=== PATIENT | male | born 1955 | race Caucasian/White ===

== ENCOUNTER 2019-04-01 15:06 | Emergency (ER) | payer MEDICARE ==
[~2019-04-01] VITALS: Ht 188 cm; Wt 98.4 kg
[2019-04-01] MEDS ORDERED: HAWT500C PO (15:16)
[2019-04-01] MEDS ORDERED: SPIR1CAP INH (15:16)
--- NOTE | 2019-04-01 16:18 | REP ---
Clinical: Cough and dyspnea . Comparison: None . Findings: The mediastinum and cardiac silhouette are stable and within normal limits for portable technique. Moderate right pleural effusion and associated right lower lobe atelectasis/consolidation. Impression: Moderate right pleural effusion and presumed right lower lobe atelectasis/consolidation. Electronically Signed by Ino Son MD 04/01/2019 04:09 P
[2019-04-01 16:24] LABS: BASO # 0.1 10^3/uL (0.0-0.2); BASO % 0.7 % (0.0-1.0); EOS # 0.3 10^3/uL (0.0-0.5); EOS % 3.8 % (0.0-3.0); HEMATOCRIT 38.2 % (42.0-52.0); HEMOGLOBIN 13.4 g/dl (13.5-17.5); LYMPH # 1.1 10^3/uL (1.5-5.0); LYMPH % 14.7 % (24.0-44.0); MEAN CORPUSCULAR HGB CONC 35.1 g/dl (32.0-36.5); MONO # 0.9 10^3/uL (0.0-0.8); MONO % 11.3 % (0.0-5.0); NEUTROPHILS # 5.3 10^3/uL (1.5-8.5); PLATELET COUNT, AUTOMATED 164 10^3/uL (150-450); RED BLOOD COUNT 3.44 10^6/uL (4.30-6.10); WHITE BLOOD COUNT 7.7 10^3/uL (4.0-10.0)
[2019-04-01 16:46] LABS: INR 1.72; PROTHROMBIN TIME 19.9 SECONDS (11.8-14.0)
[2019-04-01 16:47] LABS: PARTIAL THROMBOPLASTIN TIME 38.8 SECONDS (25.0-38.4)
[2019-04-01 16:57] LABS: ALT/SGPT 34 U/L (12-78); BILIRUBIN,DIRECT 4.6 MG/DL (0.0-0.2); BILIRUBIN,TOTAL 6.7 MG/DL (0.2-1.0); BLOOD UREA NITROGEN 8 MG/DL (7-18); CALCIUM LEVEL 8.2 MG/DL (8.8-10.2); CARBON DIOXIDE LEVEL 30 MEQ/L (21-32); CHLORIDE LEVEL 97 MEQ/L (98-107); CK-MB VALUE MASS 1.1 NG/ML (<3.6); CPK CREATINE PHOSPHOKINASE 38 U/L (39-308); CREATININE FOR GFR 0.73 MG/DL (0.70-1.30); GLOMERULAR FILTRATION RATE > 60.0 (>49); GLUCOSE, FASTING 157 MG/DL (70-100); MB/CK RELATIVE INDEX 2.89 (< OR =4); POTASSIUM SERUM 3.4 MEQ/L (3.5-5.1); SODIUM LEVEL 133 MEQ/L (136-145); THYROXINE (T4) 9.2 UG/DL (4.5-12.0); TROPONIN I < 0.02 NG/ML (< 0.10)
[2019-04-01 17:00] LABS: ACETAMINOPHEN LEVEL < 2.0 UG/ML (10.0-30.0); ETHYL ALCOHOL (ETHANOL) < 0.003 % (0.000-0.010); SALICYLATE LEVEL < 1.7 MG/DL (5.0-30.0)
[2019-04-01] MEDS ORDERED: ISOVUE-370 76% 100ML VIAL (Q9967) As Ordered ONE (17:18)
[2019-04-01] MEDS ORDERED: GINK60CA2 PO (17:45)
[2019-04-01] MEDS ORDERED: MAGN400C2 PO (17:45)
[2019-04-01] MEDS ORDERED: SM P99TA PO (17:45)
[2019-04-01] MEDS ORDERED: MULTIVITAMIN -ADULT INJECTION 10 ML, THIAMINE INJection 100 MG, FOLIC ACID 1 MG in NS 1... IV ONE (17:45)
[2019-04-01] MEDS ORDERED: LevoFLOXacin 750 MG TABLET PO ONE (17:45)
--- NOTE | 2019-04-01 18:28 | REPVR ---
EXAM: CT Angiography Chest With Contrast EXAM DATE/TIME: 04/01/2019 5:29 PM CLINICAL HISTORY: 64 years old, male; Cardiovascular condition or disease; Other: Pl effusion; Additional info: Barry, right pl effusion TECHNIQUE: Imaging protocol: Computed tomographic angiography of the chest with intravenous contrast. 3D rendering: MIP reconstructed images were created and reviewed. Radiation optimization: All CT scans at this facility use at least one of these dose optimization techniques: automated exposure control; mA and/or kV adjustment per patient size (includes targeted exams where dose is matched to clinical indication); or iterative reconstruction. Contrast material: ISOVUE 370; Contrast volume: 100 ml; Contrast route: IV; COMPARISON: CR PORTABLE CHEST X-RAY 04/01/2019 3:47 PM FINDINGS: Pulmonary arteries: Peripheral pulmonary artery evaluation limited by cardiac and respiratory motion artifact. Central pulmonary arteries show no intraluminal defect suggestive of clot. Aorta: No thoracic aortic aneurysm or dissection. Lungs: Pulmonary vascular/interstitial pattern does not suggest active pulmonary edema. Noncalcified 7 mm nodule, anterior left upper lobe, image 84. No other focal lung mass. No central endobronchial lesion. Pleural space: Large dependent transudate density right pleural effusion is present occupying nearly half of right hemithorax volume, with adjacent mild atelectasis. Miniscule dependent left pleural effusion. No pneumothorax. Heart: No overt cardiac enlargement or pericardial effusion. Liver: Liver appears cirrhotic with nodular contours. Spleen: Spleen is enlarged. Intraperitoneal space: Large volume abdominal free fluid. Lymph nodes: Small, nonspecific mediastinal nodes are present. Bones/joints: Bony structures show no acute fracture or destructive process. IMPRESSION: 1. No evidence of acute pulmonary embolus. 2. Large right pleural effusion and miniscule left pleural effusion, which may be pleural ascites, given the presence of large volume abdominal ascites, splenomegaly and cirrhotic changes of the liver. 3. No evidence of pulmonary edema or focal pneumonia. 4. Noncalcified 7 mm nodule anterior left upper lobe in accordance with [employer] guidelines, followup CT at 6-12 months is recommended for low risk patients and followup CT at 3-6 months for high risk patients. Electronically signed by: Antonio Johnson On 04/01/2019 18:28:30 PM
--- NOTE | 2019-04-01 18:34 | REPVR ---
EXAM: CT Abdomen and Pelvis With Contrast EXAM DATE/TIME: 04/01/2019 5:29 PM CLINICAL HISTORY: 64 years old, male; Other: Jaundice; Additional info: Jaunice, right pl effusion TECHNIQUE: Imaging protocol: Computed tomography of the abdomen and pelvis with intravenous contrast. Radiation optimization: All CT scans at this facility use at least one of these dose optimization techniques: automated exposure control; mA and/or kV adjustment per patient size (includes targeted exams where dose is matched to clinical indication); or iterative reconstruction. Contrast material: ISOVUE 370; Contrast volume: 100 ml; Contrast route: IV; COMPARISON: No relevant prior studies available. FINDINGS: Liver: Liver appears cirrhotic with nodular contours and heterogeneous enhancement. No focal lesion. Gallbladder and bile ducts: Gallbladder contains stones. Gallbladder wall may be mildly edematous, measuring 4-5 mm in thickness on ultrasound. No intrahepatic bile duct dilatation. Common bile duct is mildly prominent in caliber proximally measuring 10 mm. Distally it tapers, although there appear to be 2 stones in the distal common bile duct, each measuring 3 mm, coronal image 65 and axial image 67-70. Pancreas: Pancreas appears normal. No focal mass or peripancreatic inflammation. Spleen: Spleen is borderline enlarged measuring 13 cm. No focal lesion. Adrenals: Adrenal glands are normal in appearance. Kidneys and ureters: Kidneys are unremarkable aside from a benign simple fluid density 8 mm right renal cyst for which no followup is warranted. Stomach and bowel: No evidence of small bowel obstruction. Diverticular changes are present within the colon without inflammation. Appendix: Normal caliber appendix is identified, with no adjacent inflammation. Intraperitoneal space: Large volume abdominal and pelvic free fluid is present, transudate density. No peripheral enhancement or organization. No pneumoperitoneum. Vasculature: Atherosclerotic change present in the aorta, without aneurysm. Lymph nodes: No enlarged lymph nodes. Bladder: Bladder appears normal. Bones/joints: Degenerative changes are seen in the lumbar spine with disc height loss, endplate osteophytes and hypertrophic facet arthropathy. Soft tissues: Skin thickening and subcutaneous edema over the anterior lower abdomen IMPRESSION: 1. Large volume abdominal and pelvic ascites with underlying cirrhosis and splenomegaly. No portal or splenic vein thrombosis. 2. Cholelithiasis and mild gallbladder wall thickening which will be evaluated on ultrasound. 2 distal common bile duct stones are present at the ampulla level, each measuring 3 mm, without intrahepatic bile duct dilatation. Consider ERCP. 3. Colonic diverticulosis without active inflammation COMMENT: Consistent with the [employer]'s Incidental Findings Committee Report (J Am Jose Radiol 2010): Unless the patient's specific circumstances suggest otherwise, any liver lesion 0.5 cm or less, any cystic kidney lesion less than 1.0 cm, and/or any adrenal lesion 1.0 cm or less not otherwise characterized in this report as possessing suspicious or indeterminate imaging features is/are highly likely to be benign and do not require follow-up imaging or biopsy. Electronically signed by: Antonio Johnson On 04/01/2019 18:33:48 PM
--- NOTE | 2019-04-01 18:36 | REPVR ---
EXAM: US Abdomen Limited, Right Upper Quadrant EXAM DATE/TIME: 04/01/2019 6:04 PM CLINICAL HISTORY: 64 years old, male; Abdominal pain; Additional info: Jaundice TECHNIQUE: Imaging protocol: Real-time ultrasound of the abdomen with image documentation. Examination was focused on the right upper quadrant. COMPARISON: CT ABD/PEL W/IV CONTRAST ONLY 04/01/2019 5:30 PM FINDINGS: Pancreas is not visualized well but was evaluated on CT. Liver is enlarged, echogenic and nodular. Gallbladder contains multiple stones, with thickened wall measuring 4-5 mm. Common bile duct measures 10 mm in diameter. No intrahepatic bile duct dilatation Right kidney measures 11.8 cm in long axis. Right kidney appears normal. Large volume ascites. IMPRESSION: Cholelithiasis and gallbladder wall thickening. Common bile duct measures up to 10 mm without intrahepatic bile duct dilatation. CT demonstrated 2 small stones in the distal common bile duct, each measuring roughly 3 mm. Cirrhotic changes of the liver with large volume ascites. Electronically signed by: Antonio Johnson On 04/01/2019 18:35:43 PM
[2019-04-01 21:12] VITALS: BP 135/62
[2019-04-03 12:56] LABS: HEPATITIS B SURFACE ANTIGEN NEGATIVE (NEGATIVE)
[2019-04-03 13:23] LABS: HEPATITIS B CORE ANTIBODY IGM NEGATIVE (NEGATIVE); HEPATITIS C VIRUS ABY INDEX 0.1 INDEX (<0.8)
[2019-04-03 13:26] LABS: HEPATITIS A ANTIBODY IGM NEGATIVE (NEGATIVE)
--- NOTE | 2019-04-03 16:41 | ECGEPIP ---
[facility] - ED Test Date: 2019-04-01 Pat Name: PAUL COHEN Department: Room: - Gender: Male Chha: : 1955 Requested By: Sandra Kathleen Order Number: [id number] Reading MD: Milla Diaz Measurements Intervals [place] Rate: 102 P: 23 MO: 113 QRS: 50 QRSD: 97 T: 53 QT: 369 QTc: 481 Interpretive Statements SINUS TACHYCARDIA WITH SHORT MO INTERVAL NONSPECIFIC T-WAVE ABNORMALITY ABNORMAL RHYTHM ECG NO PRIOR Electronically Signed on 04-03-2019 16:40:48 EDT by Milla Diaz
== END 2019-04-01 21:17 | disposition short-term general hospital (02) ==
LOC: M ED 15:06
DX: J90 Pleural effusion, not elsewhere classified (principal); R17 Unspecified jaundice; R18.8 Other ascites; K80.50 Calculus of bile duct without cholangitis or cholecystitis without obstruction; F10.10 Alcohol abuse, uncomplicated; Z88.0 Allergy status to penicillin; F17.210 Nicotine dependence, cigarettes, uncomplicated
CPT/HCPCS: 36415; 71045; 71275; 74177; 76705; 80047; 80048; 80076; 82550; 82553; 83605; 84436; 84443; 84484; 85025; 85610; 85730; 86705; 86709; 86803; 87040; 87340; 93005; 93041; 94760; 96374; 99285; G0480; J3411; Q9967

== ENCOUNTER → 2019-05-23 | Outpatient (CLI) | payer MEDICARE ==
[~2019-05-23] MED LIST: CALCCHW PO; FURO40TA2 PO; GINK60CA2 PO; HAWT500C PO; MAGN400C2 PO; OYST500T13 PO; PANT40TA3 PO; PRED10TA2 PO; SM P99TA PO; SPIR100T3 PO; SPIR1CAP INH
[2019-05-23 12:28] LABS: BASO # 0.1 10^3/uL (0.0-0.2); BASO % 1.3 % (0.0-1.0); EOS # 0.2 10^3/uL (0.0-0.5); EOS % 3.5 % (0.0-3.0); HEMATOCRIT 42.6 % (42.0-52.0); HEMOGLOBIN 14.5 g/dl (13.5-17.5); LYMPH # 1.6 10^3/uL (1.5-5.0); MEAN CORPUSCULAR HEMOGLOBIN 36.3 pg (27.0-33.0); MEAN CORPUSCULAR VOLUME 106.5 fl (80.0-96.0); MONO # 0.7 10^3/uL (0.0-0.8); MONO % 11.3 % (0.0-5.0); NEUTROPHILS # 3.4 10^3/uL (1.5-8.5); NEUTROPHILS % 56.4 % (36.0-66.0); PLATELET COUNT, AUTOMATED 113 10^3/uL (150-450)
[2019-05-23 12:38] LABS: INR 1.37; PROTHROMBIN TIME 16.6 SECONDS (11.8-14.0)
[2019-05-23 12:39] LABS: PARTIAL THROMBOPLASTIN TIME 38.1 SECONDS (25.0-38.4)
[2019-05-23 12:59] LABS: ALBUMIN 2.7 GM/DL (3.2-5.2); ALT/SGPT 29 U/L (12-78); BILIRUBIN,TOTAL 3.1 MG/DL (0.2-1.0); BLOOD UREA NITROGEN 17 MG/DL (7-18); CALCIUM LEVEL 9.1 MG/DL (8.8-10.2); CARBON DIOXIDE LEVEL 23 MEQ/L (21-32); CHLORIDE LEVEL 108 MEQ/L (98-107); CREATININE FOR GFR 1.01 MG/DL (0.70-1.30); GLOMERULAR FILTRATION RATE > 60.0 (>49); GLUCOSE, FASTING 153 MG/DL (70-100); POTASSIUM SERUM 4.4 MEQ/L (3.5-5.1); SODIUM LEVEL 139 MEQ/L (136-145); TOTAL PROTEIN 6.9 GM/DL (6.4-8.2)
== END ==
LOC: M LAB 11:42
PROVIDERS: ATTEND Internal Medicine Gastroenterology
DX: K70.31 Alcoholic cirrhosis of liver with ascites (principal)

== ENCOUNTER 2019-05-28 05:56 | Inpatient (IN) | payer MEDICARE ==
[~2019-05-28] VITALS: Ht 188 cm; Wt 89.1 kg
[~2019-05-28 05:56] MED LIST changes: -CALCCHW PO; -FURO40TA2 PO; -OYST500T13 PO; -PANT40TA3 PO; -PRED10TA2 PO; -SPIR100T3 PO
[2019-05-28 06:54] LABS: BASO # 0.1 10^3/uL (0.0-0.2); BASO % 1.1 % (0.0-1.0); EOS # 0.4 10^3/uL (0.0-0.5); EOS % 5.6 % (0.0-3.0); LYMPH % 32.5 % (24.0-44.0); MEAN CORPUSCULAR HEMOGLOBIN 36.1 pg (27.0-33.0); MEAN CORPUSCULAR HGB CONC 34.1 g/dl (32.0-36.5); MEAN CORPUSCULAR VOLUME 105.7 fl (80.0-96.0); MONO # 0.8 10^3/uL (0.0-0.8); MONO % 12.9 % (0.0-5.0); NEUTROPHILS % 47.4 % (36.0-66.0); PLATELET COUNT, AUTOMATED 125 10^3/uL (150-450); RED BLOOD COUNT 3.88 10^6/uL (4.30-6.10); WHITE BLOOD COUNT 6.3 10^3/uL (4.0-10.0)
[2019-05-28 07:06] LABS: INR 1.49; PROTHROMBIN TIME 17.7 SECONDS (11.8-14.0)
[2019-05-28 07:07] LABS: PARTIAL THROMBOPLASTIN TIME 41.1 SECONDS (25.0-38.4)
[2019-05-28 07:21] LABS: ALBUMIN 2.6 GM/DL (3.2-5.2); ALT/SGPT 23 U/L (12-78); BILIRUBIN,DIRECT 1.1 MG/DL (0.0-0.2); BILIRUBIN,TOTAL 2.7 MG/DL (0.2-1.0); BLOOD UREA NITROGEN 24 MG/DL (7-18); CALCIUM LEVEL 8.9 MG/DL (8.8-10.2); CARBON DIOXIDE LEVEL 24 MEQ/L (21-32); CHLORIDE LEVEL 108 MEQ/L (98-107); CREATININE FOR GFR 1.09 MG/DL (0.70-1.30); ETHYL ALCOHOL (ETHANOL) < 0.003 % (0.000-0.010); GLOMERULAR FILTRATION RATE > 60.0 (>49); GLUCOSE, FASTING 130 MG/DL (70-100); LIPASE 246 U/L (73-393); POTASSIUM SERUM 4.5 MEQ/L (3.5-5.1); SODIUM LEVEL 141 MEQ/L (136-145); TOTAL PROTEIN 6.6 GM/DL (6.4-8.2)
[2019-05-28] MEDS ORDERED: FURO40TA2 PO (07:22)
[2019-05-28] MEDS ORDERED: PANT40TA3 PO (07:22)
[2019-05-28] MEDS ORDERED: CALCCHW PO (07:22)
[2019-05-28] MEDS ORDERED: PRED10TA2 PO (07:22)
[2019-05-28] MEDS ORDERED: SPIR100T3 PO (07:22)
[2019-05-28] MEDS ORDERED: IPRATROPIUM 0.5MG/ALBUTEROL 2.5MG INH SOL UD 3ML (DUONEB)(J7620) NEB ONE (08:15)
[2019-05-28] MEDS ORDERED: FUROSEMIDE 40 MG/4 ML VIAL (J1940) IV ONE (08:15)
--- NOTE | 2019-05-28 08:21 | REP ---
Clinical: Cough. Hemoptysis. Technique: PA and lateral. Comparison: 04/01/2019. Findings: Moderate right pleural effusion with underlying atelectasis is again noted and similar to prior examination. Remainder of the lung allison are well-aerated and relatively clear. Visualized portions of the mediastinum and cardiac silhouette are normal. Skeletal structures are intact. Impression: Moderate right pleural effusion essentially unchanged when compared to prior examination. Electronically Signed by Ino Son MD 05/28/2019 08:13 A
[2019-05-28] MEDS ORDERED: NICOTINE 21MG/24HR 1 EA TRANSDERMAL TD ONE (10:30)
[2019-05-28] MEDS ORDERED: OYST500T13 PO (10:47)
--- NOTE | 2019-05-28 11:05 | REP ---
Clinical: Abnormal chest x-ray findings. Effusion. Technique: Axial noncontrast images from the thoracic inlet to the upper abdomen with coronal and sagittal re-formations. Comparison: 04/01/2019. Findings: There is a moderate right pleural effusion along with elements of partial collapse/consolidation involving the right middle lobe and right lower lobe. There is a 10 mm noncalcified nodule in the anterior left upper lobe (image 47) along with 7 mm nodules in the periphery of the left lower lobe (images 78 - 79). Evaluation of the mediastinum is somewhat limited although nonspecific lymph nodes are identified. Atherosclerotic changes to the thoracic aorta and coronary arteries noted without aortic aneurysm or cardiomegaly. No pericardial effusion. Musculoskeletal structures appear intact without focal abnormality. Limited upper abdomen demonstrates normal bilateral adrenal glands and cholelithiasis as well as small subcapsular hepatic fluid and findings to suggest splenomegaly. Impression: 1. Moderate right pleural effusion with associated consolidation/partial collapse to the right middle lobe and right lower lobe. 2. Few left-sided nodules concerning for the possibility of metastatic disease. 3. Limited evaluation of the upper abdomen suggesting cholelithiasis as well as splenomegaly. Electronically Signed by Ino Son MD 05/28/2019 10:56 A
[2019-05-28 12:31] VITALS: BP 141/68
[2019-05-28] MEDS: PANTOPRAZOLE 40MG TAB (PROTONIX) PO SCH (13:22)
[2019-05-28] MEDS: SPIRONOLACTONE 50 MG TAB PO SCH (13:22)
--- NOTE | 2019-05-28 14:46 | REP ---
Clinical: Therapeutic paracentesis. Technique: Real time german scale ultrasound examination using curved array transducer. Findings: Generalized ultrasound examination demonstrates small amount of perihepatic fluid. Paracentesis not performed. Impression: Minimal amount of perihepatic fluid. Electronically Signed by Ino Son MD 05/28/2019 02:37 P
[2019-05-28 22:00] VITALS: BP 125/60
--- NOTE | 2019-05-28 22:39 | ECGEPIP ---
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
--- NOTE | 2019-05-28 23:02 | HPEPDOC ---
General Date of Admission 05/28/19 Date of Service: May 28, 2019 Chief Complaint The patient is a 64-year-old male admitted with a reason for visit of Vomiting Blood. Source: Patient, Family, RN/MD, Old records Exam Limitations: No limitations Severity: Moderate Associated Symptoms: Cough History of Present Illness 64 year old male with PMH of Alcoholic Cirrhosis with Ascites, splenomegaly, Right pleural effusion, Cholelithiasis, Left lung nodule presented to the ED for blood tinged sputum since last night. Pateint is a smoker and has chronic cough but from last night he has noticed streaks of blood in his sputum so came to the ED for evaluation. Pateint has not had a drink from february 2019. Pateint denied any fever or chills, denied any SOB or chest pain. Denied any vomiting or hemetemesis or christy. He did complain of tremors in his hands and complained of intermittent burning pain on the bottom of left foot. He denied any increased abdominal swelling. He did have ascitic fluid tapped in February 2019 at [facility]. CXR showed moderate right sided pleural effusion present since February 2019. CT c hest showed Moderate right pleural effusion with associated consolidation/partial collapse to the right middle lobe and right lower lobe. Few left-sided nodules concerning for the possibility of metastatic disease. Patient was admitted for Hemoptysis, evaluation of right pleural effusion. Home Medications Scheduled Calcium Carbonate/Vitamin D3 (Oyster Shell 500-Vit D3 200 Tb) 1 Each Tablet, 1 TAB PO DAILY, (Reported) Furosemide (Furosemide) 40 Mg Tablet, 40 MG PO DAILY, (Reported) Pantoprazole Sodium (Pantoprazole Sodium) 40 Mg Tablet.dr, 40 MG PO DAILY, (Reported) Spironolactone (Spironolactone) 100 Mg Tablet, 100 MG PO DAILY, (Reported) Allergies Coded Allergies: Penicillins (Verified Allergy, Unknown, 04/01/19) Past Medical History Medical History Alcoholic Cirrhosis with Ascites, splenomegaly Right pleural effusion Cholelithiasis Left lung nodule Peripheral vascular disease with stents in legs. Surgical History Tonsillectomy, Stents in both the legs. Family History FATHER: , HTN MOTHER: , BREAST CANCER SIBLINGS: ALIVE SON(S): ALIVE 1 BROTHER(S) , 2 SISTER(S) . 3 SON(S) . Social History * Smoker: current smoker Alcohol: heavy Drugs: denies A-FIB/CHADSVASC A-FIB History Current/History of A-Fib/PAF?: No Review of Systems Constitutional: Denies: Chills, Fever, Night Sweats Eyes: Denies: Pain, Vision change ENT: Denies: Head Aches, Ear Pain, Dysphagia Skin: Reports: Itching, Dry; Denies: Rash, Lesions, Breakdown Pulmonary: Reports: Cough, Other Symptoms (hemoptysis) Cardiovascular: Denies: Chest Pain, Palpitations, Orthopnea, Paroxysmal Noc. Dyspnea, Lt Headedness Gastrointestinal: Denies: Nausea, Vomiting, Abdominal Pain, Diarrhea Genitourinary: Denies: Dysuria, Frequency, Incontinence, Retention Hematologic: Denies: Bruising, Bleeding Excessively Musculoskeletal: Reports: Back Pain; Denies: Neck Pain, Joint Pain, Muscle Pain, Spasms Neurological: Reports: Other Symptoms (tremors of both hands); Denies: Weakness, Numbness, Change in speech, Confusion Physical Examination General Exam: Positive: Alert, Cooperative, No Acute Distress Eye Exam: Positive: PERRLA, Conjunctiva & lids normal, EOMI; Negative: Sclera icteric ENT Exam: Positive: Atraumatic, Mucous membr. moist/pink, Pharynx Normal Neck Exam: Positive: Supple; Negative: JVD, thyromegaly Chest Exam: Positive: Clear to auscultation, Diminished (at the right base) Heart Exam: Positive: Rate Normal, Regular Rhythm, Normal S1, Normal S2; Negative: Murmurs, Rubs Telemetry: Positive: No significant arrhythmia Abdomen Exam: Positive: Normal bowel sounds, Soft, Other (ascites); Negative: Tenderness, Hepatospenomegaly Extremity Exam: Positive: Edema (trace), Normal pulses; Negative: Clubbing, Cyanosis Skin Exam: Positive: Pruritus, Other skin issue (dry) Neuro Exam: Positive: Normal Speech, Normal Tone Vital Signs Vital Signs Date Time Temp Pulse Resp B/P (MAP) Pulse Ox O2 Delivery O2 Flow Rate FiO2 05/28/19 08:58 94 18 137/65 (89) 94 05/28/19 05:58 97.3 Room Air Laboratory Data Labs 24H Laboratory Tests 2 05/28/19 06:35: Immature Granulocyte % (Auto) 0.5, Neutrophils (%) (Auto) 47.4, Lymphocytes (%) (Auto) 32.5, Monocytes (%) (Auto) 12.9H, Eosinophils (%) (Auto) 5.6H, Basophils (%) (Auto) 1.1H, Neutrophils # (Auto) 3.0, Lymphocytes # (Auto) 2.0, Monocytes # (Auto) 0.8, Eosinophils # (Auto) 0.4, Basophils # (Auto) 0.1, Nucleated Red Blood Cells % (auto) 0.0, Prothrombin Time 17.7H, Prothromb Time International Ratio 1.49, Activated Partial Thromboplast Time 41.1H, Anion Gap 9, Glomerular Filtration Rate > 60.0, Calcium Level 8.9, Total Bilirubin 2.7H, Direct Bilirubin 1.1H, Aspartate Amino Transf (AST/SGOT) 33, Alanine Aminotransferase (ALT/SGPT) 23, Alkaline Phosphatase 106, Ammonia 107H, Total Protein 6.6, Albumin 2.6L, Albumin/Globulin Ratio 0.65L, Lipase 246, Ethyl Alcohol Level < 0. 003 CBC/BMP Laboratory Tests 05/28/19 06:35 Assessment/Plan 64 year old male with PMH of Alcoholic Cirrhosis with Ascites, splenomegaly, Right pleural effusion, Cholelithiasis, Left lung nodule presented to the ED for blood tinged sputum since last night. Pateint is a smoker and has chronic cough but from last night he has noticed streaks of blood in his sputum so came to the ED for evaluation. Pateint has not had a drink from february 2019. Pateint denied any fever or chills, denied any SOB or chest pain. Denied any vomiting or hemetemesis or christy. He did complain of tremors in his hands and complained of intermittent burning pain on the bottom of left foot. He denied any increased abdominal swelling. He did have ascitic fluid tapped in February 2019 at [facility]. CXR showed moderate right sided pleural effusion present since February 2019. CT chest showed Moderate right pleural effusion with associated consolidation/partial collapse to the right middle lobe and right lower lobe. Few left-sided nodules concerning for the possibility of metastatic disease. Patient was admitted for Hemoptysis, evaluation of right pleural effusion. Hemoptysis will send sputum for gram statin and cytology consider getting AFB also as the pateint is immunocompromised Right sided pleural efussion probably related to ascites but need to rule out other causes will schedule for thoracocentesis tomorrow Alcoholic cirrhosis continue lasix and spironolactone Ascites minimal GERD continue PPI. Plan / VTE VTE Prophylaxis Ordered?: Yes MELISSA ALFARO MD May 28, 2019 10:31
[2019-05-29 06:00] VITALS: BP 128/72
[2019-05-29 06:13] LABS: BASO # 0.1 10^3/uL (0.0-0.2); BASO % 1.4 % (0.0-1.0); EOS # 0.3 10^3/uL (0.0-0.5); EOS % 5.2 % (0.0-3.0); HEMATOCRIT 36.7 % (42.0-52.0); HEMOGLOBIN 12.3 g/dl (13.5-17.5); LYMPH # 1.6 10^3/uL (1.5-5.0); LYMPH % 31.1 % (24.0-44.0); MEAN CORPUSCULAR HEMOGLOBIN 35.3 pg (27.0-33.0); MEAN CORPUSCULAR HGB CONC 33.5 g/dl (32.0-36.5); MEAN CORPUSCULAR VOLUME 105.5 fl (80.0-96.0); MONO # 0.7 10^3/uL (0.0-0.8); MONO % 14.7 % (0.0-5.0); NEUTROPHILS # 2.4 10^3/uL (1.5-8.5); NEUTROPHILS % 47.4 % (36.0-66.0); PLATELET COUNT, AUTOMATED 102 10^3/uL (150-450); RED BLOOD COUNT 3.48 10^6/uL (4.30-6.10)
[2019-05-29 06:33] LABS: BLOOD UREA NITROGEN 24 MG/DL (7-18); CALCIUM LEVEL 8.3 MG/DL (8.8-10.2); CARBON DIOXIDE LEVEL 26 MEQ/L (21-32); CHLORIDE LEVEL 105 MEQ/L (98-107); CREATININE FOR GFR 1.01 MG/DL (0.70-1.30); GLOMERULAR FILTRATION RATE > 60.0 (>49); GLUCOSE, FASTING 140 MG/DL (70-100); POTASSIUM SERUM 4.4 MEQ/L (3.5-5.1); SODIUM LEVEL 138 MEQ/L (136-145)
[2019-05-29] MEDS ORDERED: ENOXAPARIN 40 MG/0.4 ML SYRINGE (J1650) SC SCH (09:00)
[2019-05-29] MEDS: SPIRONOLACTONE 50 MG TAB PO SCH (09:48)
[2019-05-29] MEDS: FUROSEMIDE 40 MG TAB PO SCH (09:48)
[2019-05-29] MEDS: PANTOPRAZOLE 40MG TAB (PROTONIX) PO SCH (09:48)
[2019-05-29] MEDS: NICOTINE 21MG/24HR 1 EA TRANSDERMAL TD SCH (09:49)
--- NOTE | 2019-05-29 13:16 | IPNPDOC ---
Date Seen The patient was seen on 05/29/19. Progress Note SUBJECTIVE: 64-year-old male with past medical history of alcohol abuse, cirrhosis, was admitted for moderate to large sized right pleural effusion and hemoptysis. Patient reports that he's been having scant amount of blood-tinged sputum for the past 1 day, no episodes today, CT was concerning for multiple nodules in the left lung which patient reports that he has heard about in the past but have never had any biopsy or further workup. He is an active smoker who currently smokes 3 packs per day and has been for over 30 years. He is scheduled for thoracentesis by IR, concern is high for malignancy, possibly hepatopulmonary syndrome. He denies any shortness of breath, chest pain, vomiting, abdominal pain or diarrhea at this time. He is having dry cough, no blood-tinged sputum today. 10 point review of systems negative except for above PHYSICAL EXAMINATION: VITAL SIGNS: Please see below. GENERAL: No distress, poor hygiene HEENT: Normocephalic, atraumatic, moist mucous membranes NECK: Supple CARDIOVASCULAR EXAMINATION: S1, S2, no murmurs RESPIRATORY EXAMINATION: Significantly Diminished on the left side, absent on the right side ABDOMINAL EXAMINATION: Soft, nontender, nondistended, positive bowel sounds EXTREMITIES: Range of motion intact SKIN: No rash NEUROLOGICAL EXAMINATION: Alert and oriented 3, no focal deficits PSYCHIATRIC EXAMINATION: Calm and cooperative LABORATORY DATA, IMAGING STUDIES, MICROBIOLOGY: Please see below. DVT prophylaxis ordered?: No ASSESSMENT AND PLAN: 64-year-old male with history of cirrhosis and active smoker with lung nodules on imaging is admitted for hemoptysis and moderate to large right-sided pleural effusion. PROBLEMS: 1. Right pleural effusion: Concern for about a pulmonate syndrome, high risk for malignancy given smoking history and lung nodules. Scheduled for thoracentesis by IR today, pleural studies ordered, saturating well on room air, no respiratory distress. 2. Lung nodules:. Patient aware of lung nodules for at least 2 years, denies history of biopsy, reports no extensive workup as per outpatient physician.. 3. Cirrhosis: Secondary to alcohol use, liver function tests within acceptable range, INR 1.5 and platelets greater than 100,000, continue spironolactone and Lasix.. DVT prophylaxis: SCDs, chemical prophylaxis contraindicated due to hemoptysis. GI prophylaxis: Protonix VS, I&O, 24H, Fishbone Vital Signs/I&O Vital Signs Date Time Temp Pulse Resp B/P (MAP) Pulse Ox O2 Delivery O2 Flow Rate FiO2 05/29/19 06:00 97.7 88 18 128/72 (90) 96 Room Air I&O- Last 24 Hours up to 6 AM 05/29/19 05:59 Intake Total 600 ml Balance 600 ml Laboratory Data 24H LABS Laboratory Tests 2 05/29/19 05:49: Immature Granulocyte % (Auto) 0.2, Neutrophils (%) (Auto) 47.4, Lymphocytes (%) (Auto) 31.1, Monocytes (%) (Auto) 14.7H, Eosinophils (%) (Auto) 5.2H, Basophils (%) (Auto) 1.4H, Neutrophils # (Auto) 2.4, Lymphocytes # (Auto) 1.6, Monocytes # (Auto) 0.7, Eosinophils # (Auto) 0.3, Basophils # (Auto) 0.1, Nucleated Red Blood Cells % (auto) 0.0, Anion Gap 7L, Glomerular Filtration Rate > 60.0, Calcium Level 8.3L CBC/BMP Laboratory Tests 05/29/19 05:49 IESHA MCGHEE MD May 29, 2019 13:15
[2019-05-29 14:00] VITALS: BP 124/63
--- NOTE | 2019-05-29 17:05 | REP ---
CHEST, TWO VIEWS: Two views of the chest are performed, status post right thoracentesis. There is no pneumothorax. There is significant decrease in the right pleural effusion. A small residual is noted. Minor interstitial infiltrate is seen in the right base. Left lung is unchanged. Heart and mediastinum are unremarkable. There are degenerative changes of the spine. IMPRESSION: No pneumothorax. Status post right thoracentesis with significantly decreased right pleural fluid. Electronically Signed by Lev Espino MD 05/30/2019 02:38 P
[2019-05-29 17:06] LABS: PH BODY FLUID 7.522 UNITS (NOT ESTABLISHED); SOURCE, BODY FLUID pH PLEURAL
[2019-05-29 17:30] VITALS: BP 127/62
[2019-05-29 17:44] LABS: APPEARANCE, BODY FLUID HAZY (CLEAR); PLEURAL FL COLOR YELLOW (COLORLESS); SOURCE, BODY FLUID PLEURAL
[2019-05-29 17:50] LABS: AMYLASE, BODY FLUID 34 U/L (NOT ESTABLISHED); CHOLESTEROL, BODY FLUID < 50 MG/DL (NOT ESTABLISHED); LDH, BODY FLUID 140 U/L (NOT ESTABLISHED); SOURCE, BODY FLUID ALBUMIN PLEURAL; SOURCE, BODY FLUID AMYLASE PLEURAL; SOURCE, BODY FLUID CHOL PLEURAL; SOURCE, BODY FLUID GLUCOSE PLEURAL; SOURCE, BODY FLUID LDH PLEURAL; SOURCE, BODY FLUID TOT PROTEIN PLEURAL; SOURCE, BODY FLUID TRIG PLEURAL; TRIGLYCERIDE, BODY FLUID 29 MG/DL (NOT ESTABLISHED)
[2019-05-29 18:00] VITALS: BP 121/63
[2019-05-29 22:00] VITALS: BP 123/60
[2019-05-30 06:00] VITALS: BP 137/79
[2019-05-30 07:34] LABS: BASO # 0.1 10^3/uL (0.0-0.2); BASO % 1.2 % (0.0-1.0); EOS # 0.3 10^3/uL (0.0-0.5); HEMATOCRIT 39.1 % (42.0-52.0); HEMOGLOBIN 13.2 g/dl (13.5-17.5); LYMPH # 1.6 10^3/uL (1.5-5.0); LYMPH % 23.7 % (24.0-44.0); MEAN CORPUSCULAR HEMOGLOBIN 35.4 pg (27.0-33.0); MEAN CORPUSCULAR HGB CONC 33.8 g/dl (32.0-36.5); MEAN CORPUSCULAR VOLUME 104.8 fl (80.0-96.0); MONO # 0.9 10^3/uL (0.0-0.8); MONO % 12.4 % (0.0-5.0); NEUTROPHILS # 3.9 10^3/uL (1.5-8.5); NEUTROPHILS % 57.3 % (36.0-66.0); PLATELET COUNT, AUTOMATED 112 10^3/uL (150-450); RED BLOOD COUNT 3.73 10^6/uL (4.30-6.10); WHITE BLOOD COUNT 6.8 10^3/uL (4.0-10.0)
[2019-05-30 07:56] LABS: BLOOD UREA NITROGEN 21 MG/DL (7-18); CALCIUM LEVEL 9.1 MG/DL (8.8-10.2); CARBON DIOXIDE LEVEL 26 MEQ/L (21-32); CHLORIDE LEVEL 106 MEQ/L (98-107); CREATININE FOR GFR 0.84 MG/DL (0.70-1.30); GLOMERULAR FILTRATION RATE > 60.0 (>49); GLUCOSE, FASTING 123 MG/DL (70-100); MAGNESIUM LEVEL 1.6 MG/DL (1.8-2.4); POTASSIUM SERUM 4.2 MEQ/L (3.5-5.1); SODIUM LEVEL 138 MEQ/L (136-145)
[2019-05-30] MEDS: PANTOPRAZOLE 40MG TAB (PROTONIX) PO SCH (07:58)
[2019-05-30] MEDS: SPIRONOLACTONE 50 MG TAB PO SCH (07:58)
[2019-05-30] MEDS: FUROSEMIDE 40 MG TAB PO SCH (07:58)
[2019-05-30] MEDS: NICOTINE 21MG/24HR 1 EA TRANSDERMAL TD SCH (08:00)
--- NOTE | 2019-05-30 13:34 | IPNPDOC ---
Date Seen The patient was seen on 05/30/19. Progress Note SUBJECTIVE: 64-year-old male with past medical history of alcohol abuse, cirrhosis, was admitted for moderate to large sized right pleural effusion and hemoptysis. Patient reports that he's been having scant amount of blood-tinged sputum for the past 1 day, no episodes today, CT was concerning for multiple nodules in the left lung which patient reports that he has heard about in the past but have never had any biopsy or further workup. He is an active smoker who currently smokes 3 packs per day and has been for over 30 years. He is scheduled for thoracentesis by IR, concern is high for malignancy, possibly hepatopulmonary syndrome. He denies any shortness of breath, chest pain, vomiting, abdominal pain or diarrhea at this time. He is having dry cough, no blood-tinged sputum today. 05/30/2019 Patient resting in bed without any complaints, reports significant improvement in shortness of breath after having thoracentesis yesterday. He continues to have dry cough, no other complaints at this time. He denies any chest pain, vomiting, abdominal pain or diarrhea. No further episodes of hemoptysis. 10 point review of systems negative except for above PHYSICAL EXAMINATION: VITAL SIGNS: Please see below. GENERAL: No distress, poor hygiene HEENT: Normocephalic, atraumatic, moist mucous membranes NECK: Supple CARDIOVASCULAR EXAMINATION: S1, S2, no murmurs RESPIRATORY EXAMINATION: Improved bilaterally, continues to have poor air movement. ABDOMINAL EXAMINATION: Soft, nontender, nondistended, positive bowel sounds EXTREMITIES: Range of motion intact SKIN: No rash NEUROLOGICAL EXAMINATION: Alert and oriented 3, no focal deficits PSYCHIATRIC EXAMINATION: Calm and cooperative LABORATORY DATA, IMAGING STUDIES, MICROBIOLOGY: Please see below. DVT prophylaxis ordered?: Yes ASSESSMENT AND PLAN: 64-year-old male with history of cirrhosis and active smoker with lung nodules on imaging is admitted for hemoptysis and moderate to large right-sided pleural effusion. PROBLEMS: 1. Right pleural effusion: Status post thoracentesis yesterday, exudative effusion, cytology concerning for malignancy, will discuss with oncology regarding further management. 2. Lung nodules: Patient aware of lung nodules for at least 2 years, denies history of biopsy, based on pleural effusion cytology, may have primary malignancy in the right lung with left lung metastases. 3. Cirrhosis: Secondary to alcohol use, liver function tests within acceptable range, INR 1.5 and platelets greater than 100,000, continue spironolactone and Lasix. DVT prophylaxis: Heparin subcutaneous GI prophylaxis: Protonix VS, I&O, 24H, Fishbone Vital Signs/I&O Vital Signs Date Time Temp Pulse Resp B/P (MAP) Pulse Ox O2 Delivery O2 Flow Rate FiO2 05/30/19 06:00 99.0 99 15 137/79 (98) 94 Room Air I&O- Last 24 Hours up to 6 AM 05/30/19 06:00 Intake Total 1620 ml Balance 1620 ml Laboratory Data 24H LABS Laboratory Tests 2 05/29/19 16:12: Body Fluid pH 7.522, Body Fluid pH Source PLEURAL, Body Fluid WBC (Auto) 1003H, Body Fluid RBC (Auto) 4, Body Fluid Mononuclear Cells % Auto 96.5H, Fluid Polymorphonuclear Cell % Auto 3.5H, Body Fluid Glucose Source PLEURAL, Body Fluid Glucose 125, Body Fluid Protein Source PLEURAL, Body Fluid Total Protein 3.0, Body Fluid Albumin Source PLEURAL, Body Fluid Albumin 1.4, Body Fluid LDH Source PLEURAL, Body Fluid Lactate Dehydrogenase 140, Body Fluid Amylase Source PLEURAL, Body Fluid Amylase 34, Body Fluid Cholesterol < 50, Body Fluid Cholesterol Source PLEURAL, Body Fluid Triglyceride Source PLEURAL, Body Fluid Triglycerides 29, Pleural Fluid Source PLEURAL, Pleural Fluid Color YELLOW, Pleural Fluid Appearance HAZY 05/30/19 07:00: Immature Granulocyte % (Auto) 0.4, Neutrophils (%) (Auto) 57.3, Lymphocytes (%) (Auto) 23.7L, Monocytes (%) (Auto) 12.4H, Eosinophils (%) (Auto) 5.0H, Basophils (%) (Auto) 1.2H, Neutrophils # (Auto) 3.9, Lymphocytes # (Auto) 1.6, Monocytes # (Auto) 0.9H, Eosinophils # (Auto) 0.3, Basophils # (Auto) 0.1, Nucleated Red Blood Cells % (auto) 0.0, Anion Gap 6L, Glomerular Filtration Rate > 60.0, Calcium Level 9.1, Magnesium Level 1.6L CBC/BMP Laboratory Tests 05/30/19 07:00 Microbiology Microbiology 05/29/19 Acid Fast Stain, Received Pending 05/29/19 Mycobacterial Culture, Received Pending 05/29/19 Fungal Smear, Received Pending 05/29/19 Fungal Culture, Received Pending 05/29/19 Gram Stain - Final, Resulted 05/29/19 Anaerobic Culture, Resulted Pending 05/29/19 Body Fluid Culture, Received Pending 05/28/19 Gram Stain - Final, Resulted 05/28/19 Sputum Culture, Resulted Pending IESHA MCGHEE MD May 30, 2019 13:34
[2019-05-30 14:00] VITALS: BP 141/87
[2019-05-30] MEDS: HEPARIN SOD (PORCINE) 5000 UNITS/ML VIAL SQ SCH ×4 (14:00→21:04)
--- NOTE | 2019-05-30 14:43 | REP ---
ULTRASOUND-GUIDED RIGHT THORACENTESIS The procedure was performed under the direct supervision of Dr. Espino. The risks and benefits of the procedure were explained to the patient and informed consent was obtained. The right pleural effusion was localized using ultrasound guidance. The skin was prepped and draped in a sterile fashion. 1% lidocaine was used as a local anesthetic. An 8-Bengali multi side-hole catheter was inserted using trocar technique. 2190 ml of ishaan colored fluid was withdrawn with a sample sent to the lab for analysis. The patient tolerated the procedure well and there were no immediate complications. After the appropriate amount of monitored convalescence the patient was discharged from the department. Electronically Signed by OK Mishra 05/29/2019 05:03 P Electronically Signed by Lev Espino MD 05/30/2019 02:34 P
[2019-05-30 22:00] VITALS: BP 149/83
[2019-05-31] MEDS: HEPARIN SOD (PORCINE) 5000 UNITS/ML VIAL SQ SCH ×2 (05:40→12:24)
[2019-05-31 06:00] VITALS: BP 151/73
[2019-05-31 06:06] LABS: BASO # 0.1 10^3/uL (0.0-0.2); BASO % 1.4 % (0.0-1.0); EOS # 0.5 10^3/uL (0.0-0.5); EOS % 7.1 % (0.0-3.0); HEMATOCRIT 39.7 % (42.0-52.0); HEMOGLOBIN 13.5 g/dl (13.5-17.5); LYMPH # 2.2 10^3/uL (1.5-5.0); LYMPH % 31.4 % (24.0-44.0); MEAN CORPUSCULAR HEMOGLOBIN 35.4 pg (27.0-33.0); MEAN CORPUSCULAR VOLUME 104.2 fl (80.0-96.0); MONO % 14.7 % (0.0-5.0); NEUTROPHILS # 3.2 10^3/uL (1.5-8.5); NEUTROPHILS % 44.8 % (36.0-66.0); PLATELET COUNT, AUTOMATED 127 10^3/uL (150-450); RED BLOOD COUNT 3.81 10^6/uL (4.30-6.10); WHITE BLOOD COUNT 7.1 10^3/uL (4.0-10.0)
[2019-05-31 06:34] LABS: BLOOD UREA NITROGEN 17 MG/DL (7-18); CALCIUM LEVEL 8.6 MG/DL (8.8-10.2); CARBON DIOXIDE LEVEL 25 MEQ/L (21-32); CHLORIDE LEVEL 103 MEQ/L (98-107); CREATININE FOR GFR 0.88 MG/DL (0.70-1.30); GLOMERULAR FILTRATION RATE > 60.0 (>49); GLUCOSE, FASTING 121 MG/DL (70-100); MAGNESIUM LEVEL 1.4 MG/DL (1.8-2.4); PHOSPHORUS LEVEL 2.7 MG/DL (2.5-4.9); POTASSIUM SERUM 3.8 MEQ/L (3.5-5.1); SODIUM LEVEL 136 MEQ/L (136-145)
[2019-05-31] MEDS ORDERED: POTASSIUM CHLORIDE 10 MEQ SR TABLET PO ONE (08:30)
[2019-05-31] MEDS: PANTOPRAZOLE 40MG TAB (PROTONIX) PO SCH (09:10)
[2019-05-31] MEDS: NICOTINE 21MG/24HR 1 EA TRANSDERMAL TD SCH (09:10)
[2019-05-31] MEDS: MAG SULF 1GM/100ML (MAG RUN) 1 GM in IV 1 EA IV SCH ×5 (09:10→15:09)
[2019-05-31] MEDS: SPIRONOLACTONE 50 MG TAB PO SCH (09:10)
[2019-05-31] MEDS: FUROSEMIDE 40 MG TAB PO SCH (09:10)
[2019-05-31] MEDS: GASTROGRAFIN SOLUTION 30ML PO SCH ×2 (09:46→10:16)
[2019-05-31] MEDS ORDERED: ISOVUE-370 76% 100ML VIAL (Q9967) As Ordered ONE (11:16)
--- NOTE | 2019-05-31 12:39 | REP ---
CT chest with IV contrast: History: Assess for malignant lesion. Comparison chest CT May 28, 2019. There is a comparison chest CT from April 01, [address] contrast dose: 100 ml of intravenous Isovue [address] findings: There is a small to moderate-sized right pleural effusion again noted, decreased in size from the May 28, 2019 prior study. There is some visceral pleural thickening adjacent to the fluid in the right lower lobe posteriorly. No definite parietal pleural thickening or nodularity is appreciated. Multiple subcentimeter nodules are again noted in the left lower lobe and left upper lobe. The largest of these is in the left upper lobe measuring 9 mm in greatest diameter. These are unchanged from the May 28, 2019 study. They do not appear to be changed from April 01, 2019. There is a calcified granuloma in the right lower lobe. There is somewhat better inflation of the right lung. There is some interstitial changes in the right lower lobe and right middle lobe at the right lung base. There is minimal ascites adjacent to the liver in the upper abdomen. Calcific density material is seen in the gallbladder lumen consistent with cholelithiasis. No adrenal lesion is seen. No hilar adenopathy is observed. There are scattered subcarinal and pre tracheal lymph nodes which do not appear to be pathologically enlarged and which are unchanged from the recent prior CT studies. No axillary or other extrathoracic adenopathy is seen. No vascular abnormalities observed. No bony destructive lesion is appreciated. Impression: There are three noncalcified pulmonary nodules in the left lung. Interstitial and visceral pleural changes are noted in the right lower lobe and to a lesser extent right middle lobe. There is there is a decreased amount of left pleural fluid and less ascites than on prior studies. Electronically Signed by Marvin Chamorro MD 05/31/2019 12:58 P
--- NOTE | 2019-05-31 12:42 | REP ---
CT abdomen and pelvis with IV and oral contrast: History: Assess for malignant lesion. Comparison CT study is from April 01, 2019. CT contrast dose: 100 ml of intravenous Isovue [address] findings: Right pleural effusion is again noted. Spleen is mildly enlarged measuring 13.2 cm in greatest transverse dimension. The liver is not overall enlarged. No focal hepatic or splenic lesion is appreciated. No adrenal lesion is observed. There is a small cyst in the upper pole of the right kidney. No other renal lesion is seen. Calcific material is seen within the lumen of the gallbladder. There is some gallbladder wall thickening. Findings are consistent with cholelithiasis and chronic cholecystitis. There is minimal ascites in the upper abdomen and pelvis. This is much decreased when compared with April 01, [address] study. There are prominent venous collaterals within the abdomen suggestive of portal hypertension. Portal vein is not dilated. There is left colonic diverticulosis without CT evidence of diverticulitis. An uninflamed appendix is seen in the right lower quadrant. Urinary bladder, prostate, and seminal vesicles are unremarkable. There is a vascular stent in the left external iliac artery. There is no visible peritoneal or abdominal mass lesion. Bone window settings show no bony destructive lesion. No abdominal wall defect is seen. Impression: Minimal ascites, much improved. Mild splenomegaly. Prominent venous collaterals noted within the abdomen. Question portal hypertension. Cholelithiasis. Left colonic diverticulosis. Electronically Signed by Marvin Chamorro MD 05/31/2019 12:58 P
--- NOTE | 2019-05-31 13:27 | DS.PDOC ---
Discharge Summary General Date of Admission May 28, 2019 at 11:23 Date of Discharge 05/31/2019 Attending Physician: IESHA MCGHEE MD Discharge Summary PROCEDURES PERFORMED DURING STAY: None. ADMITTING DIAGNOSES: 1. Pleural effusion, hemoptysis. DISCHARGE DIAGNOSES: 1. Pleural effusion, possible malignancy. COMPLICATIONS/CHIEF COMPLAINT: Alcoholic Cirrhosis Liver With Ascites ,Hemoptysis,. HISTORY OF PRESENT ILLNESS: 64-year-old active smoker with history of cirrhosis was admitted for hemoptysis in moderate to large right-sided pleural effusion. He underwent recent by IR, pleural fluid was exudative and cytology is concerning for possible neoplastic mesothelial infiltration. Case was discussed with Dr. Fonseca from hematology/oncology who recommended a CT chest, abdomen and pelvis with IV contrast and patient follow-up in her office after discharge. Patient is seen without any stable, CT performed, will be discharged with close follow-up with Dr. Fonseca and his primary. Patient did not have any episodes of hemoptysis after admission, currently without any complaints.. HOSPITAL COURSE: As above. DISCHARGE MEDICATIONS: Please see below. ALLERGIES: Please see below. PHYSICAL EXAMINATION: VITAL SIGNS: Please see below. GENERAL: No distress HEENT: Normocephalic, atraumatic, moist mucous membranes NECK: Supple CARDIOVASCULAR EXAMINATION: S1, S2, no murmurs RESPIRATORY EXAMINATION: Diminished, poor air movement, scattered rhonchi, no wheezing appreciated. ABDOMINAL EXAMINATION: Soft, nontender, nondistended, positive bowel sounds EXTREMITIES: Range of motion intact SKIN: No rash NEUROLOGICAL EXAMINATION: Alert and oriented 3, no focal deficits PSYCHIATRIC EXAMINATION: Calm and cooperative LABORATORY DATA: Please see below. IMAGING: CT chest with multiple left lung nodules concerning for metastatic disease PROGNOSIS: Poor ACTIVITY: As tolerated. DIET: Cardiac DISCHARGE PLAN: She will follow up with oncology and PCP in 1-2 weeks DISPOSITION: . DISCHARGE INSTRUCTIONS: 1. As above. DISCHARGE CONDITION: Stable. TIME SPENT ON DISCHARGE: Greater than 35 minutes. Vital Signs/I&Os Vital Signs Date Time Temp Pulse Resp B/P (MAP) Pulse Ox O2 Delivery O2 Flow Rate FiO2 05/31/19 06:00 98.6 89 16 151/73 (99) 95 05/30/19 22:00 Room Air I&O- Last 24 Hours up to 6 AM 05/31/19 06:00 Intake Total 1475 ml Output Total 0 ml Balance 1475 ml Laboratory Data Labs 24H Laboratory Tests 2 05/31/19 05:47: Immature Granulocyte % (Auto) 0.6, Neutrophils (%) (Auto) 44.8, Lymphocytes (%) (Auto) 31.4, Monocytes (%) (Auto) 14.7H, Eosinophils (%) (Auto) 7.1H, Basophils (%) (Auto) 1.4H, Neutrophils # (Auto) 3.2, Lymphocytes # (Auto) 2.2, Monocytes # (Auto) 1.0H, Eosinophils # (Auto) 0.5, Basophils # (Auto) 0.1, Nucleated Red Blood Cells % (auto) 0.0, Anion Gap 8, Glomerular Filtration Rate > 60.0, Calcium Level 8.6L, Phosphorus Level 2.7, Magnesium Level 1.4L CBC/BMP Laboratory Tests 05/31/19 05:47 Microbiology Microbiology 05/29/19 Acid Fast Stain, Received Pending 05/29/19 Mycobacterial Culture, Received Pending 05/29/19 Fungal Smear, Received Pending 05/29/19 Fungal Culture, Received Pending 05/29/19 Gram Stain - Final, Complete 05/29/19 Anaerobic Culture - Final, Complete 05/29/19 Body Fluid Culture - Final, Complete 05/28/19 Gram Stain - Final, Complete 05/28/19 Sputum Culture - Final, Complete Discharge Medications Scheduled Calcium Carbonate/Vitamin D3 (Oyster Shell 500-Vit D3 200 Tb) 1 Each Tablet, 1 TAB PO DAILY, (Reported) Furosemide (Furosemide) 40 Mg Tablet, 40 MG PO DAILY, (Reported) Pantoprazole Sodium (Pantoprazole Sodium) 40 Mg Tablet.dr, 40 MG PO DAILY, (Reported) Spironolactone (Spironolactone) 100 Mg Tablet, 100 MG PO DAILY, (Reported) Allergies Coded Allergies: Penicillins (Verified Allergy, Unknown, 04/01/19) IESHA MCGHEE MD May 31, 2019 13:27
[2019-05-31 14:00] VITALS: BP 148/65
== END 2019-05-31 16:26 | disposition home health service (06) | DRG 187 ==
LOC: M ED 05:56 → M ED INP 11:23 → M MSPAV 12:25
PROVIDERS: ADMIT Internal Medicine Nephrology; ATTEND Internal Medicine
PROC: 0W993ZX Drainage of Right Pleural Cavity, Percutaneous Approach, Diagnostic (ICD-10-PCS; principal; 2019-05-29 15:45)
DX: J90 Pleural effusion, not elsewhere classified (principal); C34.91 Malignant neoplasm of unspecified part of right bronchus or lung; R04.2 Hemoptysis; C78.02 Secondary malignant neoplasm of left lung; K70.31 Alcoholic cirrhosis of liver with ascites; Z79.899 Other long term (current) drug therapy; K80.20 Calculus of gallbladder without cholecystitis without obstruction; Z88.0 Allergy status to penicillin; I73.9 Peripheral vascular disease, unspecified; K21.9 Gastro-esophageal reflux disease without esophagitis; F17.200 Nicotine dependence, unspecified, uncomplicated

== ENCOUNTER → 2019-06-11 | Outpatient (REF) | payer MEDICARE ==
[~2019-06-11] MED LIST changes: +CALCCHW PO; +FURO40TA2 PO; +MAGN1CAP PO; +OYST500T13 PO; +PANT40TA3 PO; +PRED10TA2 PO; +SPIR100T3 PO
[2019-06-11 14:37] LABS: HEMOGLOBIN A1c 6.1 %
[2019-06-11 14:56] LABS: CHOLESTEROL RISK RATIO 3.224 (<5); FREE T4 1.21 NG/DL (0.76-1.46); THYROID STIMULATING HORMONE 2.56 uIU/ML (0.358-3.740)
== END ==
LOC: M SHH 13:08
PROVIDERS: ATTEND Student in an Organized Health Care Education/Training Program
DX: Z13.1 Encounter for screening for diabetes mellitus (principal); Z13.220 Encounter for screening for lipoid disorders; E03.9 Hypothyroidism, unspecified; Z79.899 Other long term (current) drug therapy

== ENCOUNTER 2019-07-01 09:31 | Day surgery (SDC) | payer MEDICARE ==
[~2019-07-01] VITALS: Ht 188 cm; Wt 92.5 kg
[~2019-07-01 09:31] MED LIST changes: +LIDOCAINE 2% INJ 100 MG/5 ML SDV (FOR ANES.) As Ordered ONE; +NS 1,000 ML IV ONE; +PROPOFOL 200 MG/20 ML VIAL As Ordered ONE
--- NOTE | 2019-07-01 10:50 | ROOR ---
Patient Name: Irvin Munoz Procedure Date: 07/01/2019 10:36 AM Date of : 1955 Age: 64 Room: [facility] Gender: Male Note Status: Finalized Procedure: Upper Endoscopy + Biopsies Indications: Cirrhosis rule out esophageal varices, Exclusion of gastric varices Providers: Yoan Luther MD Referring MD: Emir Schultz Do Requesting Provider: Medicines: Monitored Anesthesia Care Complications: No immediate complications. Procedure: Pre-Anesthesia Assessment: - The heart rate, respiratory rate, oxygen saturations, blood pressure, adequacy of pulmonary ventilation, and response to care were monitored throughout the procedure. The Endoscope was introduced through the mouth, and advanced to the second part of duodenum. The upper GI endoscopy was accomplished without difficulty. The patient tolerated the procedure well. Findings: The Z-line was regular and was found 40 cm from the incisors. Grade I varices were found in the lower third of the esophagus. They were diminutive in size. Mild portal hypertensive gastropathy was found in the gastric antrum. Biopsies were taken with a cold forceps for histology. The exam of the duodenum was otherwise normal. Impression: - Z-line regular, 40 cm from the incisors. - Grade I esophageal varices. - Portal hypertensive gastropathy. Biopsied. - The examination was otherwise normal. Recommendation: - Await pathology results. - Discharge patient to home. - Continue present medications. - Await pathology results. - Telephone GI clinic for pathology results in 1 week. - Return to referring physician. - Repeat upper endoscopy in 1 year for surveillance. - The findings and recommendations were discussed with the patient's family. Yoan Luther MD Yoan Luther MD 07/01/2019 10:50:40 AM Electronically signed by Yoan Luther MD Number of Addenda: 0 Note Initiated On: 07/01/2019 10:36 AM Estimated Blood Loss: Estimated blood loss: none.
[2019-07-01 11:10] VITALS: BP 124/63
== END 2019-07-01 11:19 | disposition home or self-care (01) ==
LOC: M OPP 09:31
PROVIDERS: ATTEND Internal Medicine Gastroenterology
DX: K74.60 Unspecified cirrhosis of liver (principal); I85.00 Esophageal varices without bleeding; K76.6 Portal hypertension; K31.89 Other diseases of stomach and duodenum

== ENCOUNTER → 2019-08-12 | Outpatient (CLI) | payer MEDICARE ==
[~2019-08-12] MED LIST changes: -LIDOCAINE 2% INJ 100 MG/5 ML SDV (FOR ANES.) As Ordered ONE; -NS 1,000 ML IV ONE; -PROPOFOL 200 MG/20 ML VIAL As Ordered ONE
--- NOTE | 2019-08-12 15:03 | REP ---
CT CHEST WITHOUT IV CONTRAST: COMPARISON: 05/28/2019 and 05/31/2019. CT chest performed without IV contrast. Sagittal and coronal reconstruction images are performed. Moderate to large right pleural effusion is again noted. This has mildly decreased in size since the prior exam. There is mild adjacent atelectasis or infiltrate in the right lower lobe. There are a couple of calcified granulomas in the right lower lobe. On the left, a 1 cm nodule in the left upper lobe is unchanged. There are two adjacent subcentimeter nodular densities in the left lower lobe, which are unchanged. No new nodules are seen. There is some minor fibrotic scarring also seen in the left lung. Multiple small subcentimeter lymph nodes are seen in the mediastinum. No new adenopathy is seen. No axillary adenopathy is seen. There is mild atherosclerotic calcification of the thoracic aorta without aneurysm. Heart is not enlarged. Tiny amount of right pericardial fluid or thickening is seen, unchanged. In the upper abdomen, the liver has an appearance suggesting some degree of cirrhosis. There is mild perihepatic fluid. There is splenomegaly. Gallstones are seen in the gallbladder. There are degenerative changes of the spine. IMPRESSION: Large right pleural effusion has mildly decreased in size since the prior exam. There is mild adjacent right lower lobe atelectasis/infiltrate. Three nodular densities in the left lung remain stable. The largest in the left upper lobe and measures 1 cm in diameter. In the upper abdomen, there is mild perihepatic fluid. Liver demonstrates somewhat scalloped border and contour suggesting cirrhosis. There is splenomegaly. Gallstones are seen in the gallbladder. Electronically Signed by Lev Espino MD 08/12/2019 06:08 P
== END ==
LOC: M RAD 09:13
PROVIDERS: ATTEND Internal Medicine Hematology
DX: R91.8 Other nonspecific abnormal finding of lung field (principal)

== ENCOUNTER → 2019-11-13 | Outpatient (REF) | payer MEDICARE ==
[2019-11-13 10:35] LABS: HEMATOCRIT 41.6 % (42.0-52.0); HEMOGLOBIN 14.3 g/dl (13.5-17.5); MEAN CORPUSCULAR HEMOGLOBIN 34.9 pg (27.0-33.0); MEAN CORPUSCULAR HGB CONC 34.4 g/dl (32.0-36.5); MEAN CORPUSCULAR VOLUME 101.5 fl (80.0-96.0); PLATELET COUNT, AUTOMATED 133 10^3/uL (150-450)
[2019-11-13 10:50] LABS: INR 1.61; PROTHROMBIN TIME 18.9 SECONDS (11.8-14.0)
[2019-11-13 10:51] LABS: PARTIAL THROMBOPLASTIN TIME 40.3 SECONDS (25.0-38.4)
[2019-11-13 11:15] LABS: ALBUMIN 2.9 GM/DL (3.2-5.2); ALT/SGPT 16 U/L (12-78); BILIRUBIN,TOTAL 2.9 MG/DL (0.2-1.0); BLOOD UREA NITROGEN 15 MG/DL (7-18); CALCIUM LEVEL 9.2 MG/DL (8.8-10.2); CARBON DIOXIDE LEVEL 28 MEQ/L (21-32); CHLORIDE LEVEL 102 MEQ/L (98-107); CHOLESTEROL LEVEL 150 MG/DL (<200); CHOLESTEROL RISK RATIO 3.061 (<5); CREATININE FOR GFR 0.89 MG/DL (0.70-1.30); GLOMERULAR FILTRATION RATE > 60.0 (>49); GLUCOSE, FASTING 172 MG/DL (70-100); HDL CHOLESTEROL 49 MG/DL (>40); LDL CHOLESTEROL 79 MG/DL (<100); NON-HDL-C 101 MG/DL; POTASSIUM SERUM 4.1 MEQ/L (3.5-5.1); SODIUM LEVEL 134 MEQ/L (136-145); TOTAL PROTEIN 7.5 GM/DL (6.4-8.2); TRIGLYCERIDES LEVEL 111 MG/DL (<150)
== END ==
LOC: M SFHCPLAZ 09:40
PROVIDERS: ATTEND Family Medicine
DX: K70.31 Alcoholic cirrhosis of liver with ascites (principal); Z13.220 Encounter for screening for lipoid disorders; E44.1 Mild protein-calorie malnutrition
CPT/HCPCS: 36415; 80053; 80061; 82140; 85027; 85610; 85730; G0463

== ENCOUNTER 2020-04-05 22:05 | Emergency (ER) | payer MEDICARE ==
[~2020-04-05] VITALS: Ht 188 cm; Wt 92.3 kg
[~2020-04-05 22:05] MED LIST changes: +PANT40TA29 PO; -PANT40TA3 PO
[2020-04-05] MEDS ORDERED: GABA-843 (22:18)
[2020-04-05 23:44] VITALS: BP 134/63
--- NOTE | 2020-04-06 00:26 | REPVR ---
PROCEDURE INFORMATION: Exam: XR Chest, 2 Views Exam date and time: 04/05/2020 11:59 PM Age: 65 years old Clinical indication: Shortness of breath; Additional info: SOB TECHNIQUE: Imaging protocol: XR of the chest Views: 2 views. COMPARISON: CT Chest without contrast 08/12/2019 9:29 AM FINDINGS: Lungs: There are findings of chronic obstructive pulmonary disease. There is right basilar atelectasis versus pneumonitis, likely superimposed upon chronic parenchymal scarring. Pleural space: Right pleural effusion. Heart/Mediastinum: Unremarkable. No cardiomegaly. Bones/joints: Unremarkable. IMPRESSION: 1. Findings of chronic obstructive pulmonary disease. 2. Right basilar atelectasis versus pneumonitis. 3. Right pleural effusion. Electronically signed by: Nadia Cassidy On 04/06/2020 00:26:07 AM
[2020-04-06 00:39] LABS: BASO # 0.1 10^3/uL (0.0-0.2); BASO % 0.9 % (0.0-1.0); EOS # 0.3 10^3/uL (0.0-0.5); EOS % 5.4 % (0.0-3.0); HEMATOCRIT 30.8 % (42.0-52.0); LYMPH # 1.4 10^3/uL (1.5-5.0); LYMPH % 24.5 % (24.0-44.0); MEAN CORPUSCULAR HEMOGLOBIN 31.1 pg (27.0-33.0); MEAN CORPUSCULAR HGB CONC 32.5 g/dl (32.0-36.5); MEAN CORPUSCULAR VOLUME 95.7 fl (80.0-96.0); MONO # 0.6 10^3/uL (0.0-0.8); MONO % 11.6 % (0.0-5.0); NEUTROPHILS # 3.2 10^3/uL (1.5-8.5); NEUTROPHILS % 57.2 % (36.0-66.0); PLATELET COUNT, AUTOMATED 151 10^3/uL (150-450); RED BLOOD COUNT 3.22 10^6/uL (4.30-6.10); WHITE BLOOD COUNT 5.5 10^3/uL (4.0-10.0)
[2020-04-06 01:05] LABS: ALBUMIN 2.9 GM/DL (3.2-5.2); ALT/SGPT 14 U/L (12-78); BILIRUBIN,DIRECT 0.3 MG/DL (0.0-0.2); BILIRUBIN,TOTAL 0.7 MG/DL (0.2-1.0); BLOOD UREA NITROGEN 21 MG/DL (7-18); CALCIUM LEVEL 8.9 MG/DL (8.8-10.2); CARBON DIOXIDE LEVEL 25 MEQ/L (21-32); CHLORIDE LEVEL 111 MEQ/L (98-107); CK-MB VALUE MASS < 1.0 NG/ML (<3.6); CPK CREATINE PHOSPHOKINASE 49 U/L (39-308); CREATININE FOR GFR 1.07 MG/DL (0.70-1.30); GLOMERULAR FILTRATION RATE > 60.0 (>49); GLUCOSE, FASTING 131 MG/DL (70-100); LIPASE 283 U/L (73-393); MB/CK RELATIVE INDEX 2.04 (< OR =4); NT-PRO BNP 88 PG/ML (<125); POTASSIUM SERUM 4.3 MEQ/L (3.5-5.1); SODIUM LEVEL 139 MEQ/L (136-145); TOTAL PROTEIN 7.2 GM/DL (6.4-8.2); TROPONIN I < 0.02 NG/ML (< 0.10)
--- NOTE | 2020-04-08 10:57 | ED PDOC ---
Post-Departure Follow-Up dr thomas faxed formal report of cxr for fu Sandra Dinero MD Apr 08, 2020 10:57
--- NOTE | 2020-04-09 16:05 | ECGEPIP ---
[facility] - ED Test Date: 2020-04-05 Pat Name: PAUL COHEN Department: Room: - Gender: Male Electronic Service Technician: KARSTEN : 1955 Requested By: PRAVEENA BOCANEGRA Order Number: [id number] Reading MD: Sandra Kathleen Measurements Intervals [place] Rate: 91 P: 0 TX: 116 QRS: 42 QRSD: 109 T: 51 QT: 378 QTc: 466 Interpretive Statements SINUS RHYTHM WITH SHORT TX INTERVAL POSSIBLE LEFT ATRIAL ENLARGEMENT NONSPECIFIC ST T CHANGES NO PRIOR TO COMPARE SEE SCANNED DOWNTIME REPORT
== END 2020-04-06 01:58 | disposition home or self-care (01) ==
LOC: M ED 22:05
DX: M54.5 Low back pain (principal); G62.9 Polyneuropathy, unspecified; D64.9 Anemia, unspecified; J44.9 Chronic obstructive pulmonary disease, unspecified; J90 Pleural effusion, not elsewhere classified; K74.60 Unspecified cirrhosis of liver; Z79.899 Other long term (current) drug therapy; Z88.0 Allergy status to penicillin; F17.210 Nicotine dependence, cigarettes, uncomplicated

== ENCOUNTER → 2020-04-20 | Outpatient (CLI) | payer MEDICARE ==
[~2020-04-20] MED LIST changes: +GABA-843
--- NOTE | 2020-04-29 11:19 | REPPI ---
RIGHT SHOULDER SERIES: 3-VIEWS HISTORY: Pain. FINDINGS: The right glenohumeral and acromioclavicular joints are normally aligned. There is mild osteoarthritic narrowing and spurring at the AC joint. There is also glenohumeral osteoarthritic spurring. Periarticular soft tissues are unremarkable. No erosive change is seen. The visualized right lung is unremarkable. IMPRESSION: Mild glenohumeral and acromioclavicular joint osteoarthritis. No acute bony abnormality. MTDD
--- NOTE | 2020-04-29 11:21 | REPPI ---
LUMBAR SPINE SERIES: 5-VIEWS HISTORY: Back pain. FINDINGS: Five views of the lumbar spine demonstrate preserved vertebral body heights. Pedicles and posterior elements are intact. There is degenerative disc disease at each lumbar level most pronounced at L4-5. There is advanced osteoarthritic facet sclerosis and narrowing at L4-5 bilaterally and in combination with degenerative disc disease, there is a 2-3 mm grade 1 L4-5 spondylolisthesis. There is no evidence of spondylolysis. There is mild facet hypertrophy bilaterally at L5-S1 and L3-4. Psoas margins are symmetric. Sacrum and SI joints are intact. There is an iliac arterial stent visible on the left. IMPRESSION: Degenerative spondylosis changes most pronounced at L4-5 with grade 1 degenerative L4-5 spondylolisthesis. No acute bony abnormality. MTDD
== END ==
LOC: M PLAIMG 11:14
PROVIDERS: ATTEND Student in an Organized Health Care Education/Training Program
DX: M19.011 Primary osteoarthritis, right shoulder (principal); M51.36 Other intervertebral disc degeneration, lumbar region

== ENCOUNTER 2020-05-28 14:30 | Outpatient (RCR) | payer MEDICARE | END 2020-05-30 | LOC: M PT 14:30 | PROVIDERS: ATTEND Student in an Organized Health Care Education/Training Program | DX: M62.81 Muscle weakness (generalized) (principal) ==

== ENCOUNTER → 2020-06-01 | Outpatient (REF) | payer MEDICARE ==
[2020-06-01 17:01] LABS: INR 1.41; PROTHROMBIN TIME 17.6 SECONDS (12.5-14.3)
[2020-06-01 17:07] LABS: HEMATOCRIT 33.6 % (42.0-52.0); HEMOGLOBIN 10.4 g/dl (13.5-17.5); MEAN CORPUSCULAR HEMOGLOBIN 28.3 pg (27.0-33.0); MEAN CORPUSCULAR VOLUME 91.3 fl (80.0-96.0); PLATELET COUNT, AUTOMATED 138 10^3/uL (150-450); RED BLOOD COUNT 3.68 10^6/uL (4.30-6.10); WHITE BLOOD COUNT 5.7 10^3/uL (4.0-10.0)
[2020-06-01 19:30] LABS: ALT/SGPT 14 U/L (12-78); BILIRUBIN,TOTAL 0.9 MG/DL (0.2-1.0); BLOOD UREA NITROGEN 11 MG/DL (7-18); CALCIUM LEVEL 9.1 MG/DL (8.8-10.2); CARBON DIOXIDE LEVEL 27 MEQ/L (21-32); CHLORIDE LEVEL 108 MEQ/L (98-107); CREATININE FOR GFR 0.92 MG/DL (0.70-1.30); GLOMERULAR FILTRATION RATE > 60.0 (>49); GLUCOSE, FASTING 92 MG/DL (70-100); POTASSIUM SERUM 4.4 MEQ/L (3.5-5.1); SODIUM LEVEL 140 MEQ/L (136-145); TOTAL PROTEIN 7.2 GM/DL (6.4-8.2)
== END ==
LOC: M SFHCPLAZ 14:52
PROVIDERS: ATTEND Family Medicine
DX: K70.31 Alcoholic cirrhosis of liver with ascites (principal); Z79.01 Long term (current) use of anticoagulants

== ENCOUNTER 2020-06-08 16:14 | Emergency (ER) | payer MEDICARE ==
[~2020-06-08] VITALS: Ht 188 cm; Wt 109.1 kg
--- NOTE | 2020-06-08 19:06 | REP ---
INDICATION: DYSPNEA/COUGH. COMPARISON: 04/05/2020. FINDINGS: The technique utilized in obtaining the radiograph has magnified the cardiac silhouette and accentuated the interstitial markings. The cardiac silhouette is magnified by technique. There is no cholo cardiomegaly. There is a patchy opacity in the right lower lobe with right CP angle blunting. This has changed little compared to the prior exam. The interstitial markings are diffusely increased. IMPRESSION: There is evidence of interstitial edema and chronic changes in the right lower lobe status quo. Acute disease superimposed upon chronic change can not be ruled out. <Electronically signed by Rogelio Storey > 06/08/20 [id number]
[2020-06-08 19:23] LABS: VENOUS BASE EXCESS -2.5 (-2.0-2.0); VENOUS HCO3 22.2 MEQ/L (23.0-27.0); VENOUS O2 SATURATION 97.7 % (60.0-80.0); VENOUS PARTIAL PRESSURE CO2 37.8 mmHg (38.0-50.0); VENOUS PARTIAL PRESSURE O2 103.6 mmHg (30.0-50.0); VENOUS PH 7.386 UNITS (7.330-7.430); VENOUS STANDARD HCO3 22.4 MEQ/L; VENOUS TOTAL CO2 23.3 MEQ/L (24.0-28.0)
[2020-06-08 19:31] LABS: EOS # 0.3 10^3/uL (0.0-0.5); EOS % 7.6 % (0.0-3.0); HEMATOCRIT 30.2 % (42.0-52.0); LYMPH # 1.2 10^3/uL (1.5-5.0); LYMPH % 29.2 % (24.0-44.0); MEAN CORPUSCULAR HEMOGLOBIN 26.8 pg (27.0-33.0); MEAN CORPUSCULAR HGB CONC 29.8 g/dl (32.0-36.5); MEAN CORPUSCULAR VOLUME 89.9 fl (80.0-96.0); MONO # 0.5 10^3/uL (0.0-0.8); MONO % 13.2 % (0.0-5.0); NEUTROPHILS % 48.8 % (36.0-66.0); PLATELET COUNT, AUTOMATED 108 10^3/uL (150-450); RED BLOOD COUNT 3.36 10^6/uL (4.30-6.10); WHITE BLOOD COUNT 4.1 10^3/uL (4.0-10.0)
[2020-06-08 19:43] LABS: INR 1.34; PROTHROMBIN TIME 16.9 SECONDS (12.5-14.3)
--- NOTE | 2020-06-08 19:53 | REPVR ---
PROCEDURE INFORMATION: Exam: US Abdomen; Limited Exam date and time: 06/08/2020 7:42 PM Age: 65 years old Clinical indication: Abdominal swelling; Assess ascites TECHNIQUE: Imaging protocol: US abdomen. Real time ultrasound with image documentation. Limited exam focused on the region of clinical interest. COMPARISON: 1. Abdomen, limited US 05/28/2019 2:[address] ABD PELVIS WITH CONTRAST 05/31/2019 11:22:34 AM FINDINGS: Intraperitoneal space: No free fluid is seen from the images obtained. IMPRESSION: No ascites identified. Electronically signed by: Drake Smith On 06/08/2020 19:52:41 PM
[2020-06-08 20:05] LABS: ALBUMIN 2.7 GM/DL (3.2-5.2); BILIRUBIN,DIRECT 0.4 MG/DL (0.0-0.2); BILIRUBIN,TOTAL 0.9 MG/DL (0.2-1.0); THYROID STIMULATING HORMONE 2.5 uIU/ML (0.358-3.740); TOTAL PROTEIN 6.4 GM/DL (6.4-8.2)
[2020-06-08] MEDS ORDERED: FUROSEMIDE 100MG/10ML VIAL (J1940) IV ONE (20:15)
[2020-06-08 21:00] VITALS: BP 148/65
--- NOTE | 2020-06-09 01:05 | ECGEPIP ---
[facility] - ED Test Date: 2020-06-08 Pat Name: PAUL COHEN Department: Room: - Gender: Male Technical Program Manager: PATIENCE : 1955 Requested By: Milla Diaz Order Number: [id number] Reading MD: Gene Ortiz Measurements Intervals [place] Rate: 92 P: 13 OR: 115 QRS: 55 QRSD: 96 T: 41 QT: 381 QTc: 473 Interpretive Statements SINUS RHYTHM WITH SHORT OR INTERVAL POSSIBLE LEFT ATRIAL ENLARGEMENT SIMILAR TO 04/05/20 Electronically Signed on 06-09-2020 1:05:13 EST by Gene Ortiz
== END 2020-06-08 21:05 | disposition home or self-care (01) ==
LOC: M ED 16:14
DX: R60.9 Edema, unspecified (principal); I50.9 Heart failure, unspecified; I11.0 Hypertensive heart disease with heart failure; K74.60 Unspecified cirrhosis of liver; M54.5 Low back pain; Z88.0 Allergy status to penicillin; F17.210 Nicotine dependence, cigarettes, uncomplicated
CPT/HCPCS: 36415; 71045; 76705; 80047; 80076; 82803; 83880; 84443; 84484; 85025; 85610; 93005; 93041; 96374; 99284; J1940